=== PATIENT | male | born 2005 | race Caucasian/White ===

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

== ENCOUNTER 2023-04-18 23:16 | Emergency (ER) | payer OTHER ==
[~2023-04-18] VITALS: Ht 185.4 cm; Wt 70.5 kg
[2023-04-18 23:16] VITALS: TEMP 97.6
[~2023-04-18 23:16] MED LIST: IBUP-1022 PO
[2023-04-19] MEDS ORDERED: NS 1,000 ML IV ONE (01:15)
[2023-04-19 01:49] LABS: BASO # 0.1 10^3/uL (0.0-0.2); BASO % 0.7 % (0.0-1.0); EOS # 0.2 10^3/uL (0.0-0.5); EOS % 3.1 % (0.0-3.0); HEMATOCRIT 40.4 % (42.0-52.0); HEMOGLOBIN 13.6 g/dl (13.5-17.5); LYMPH # 2.6 10^3/uL (1.5-5.0); LYMPH % 38.1 % (24.0-44.0); MEAN CORPUSCULAR HEMOGLOBIN 29.8 pg (27.0-33.0); MEAN CORPUSCULAR HGB CONC 33.7 g/dl (32.0-36.5); MEAN CORPUSCULAR VOLUME 88.4 fl (80.0-96.0); MONO # 0.6 10^3/uL (0.0-0.8); NEUTROPHILS # 3.3 10^3/uL (1.5-8.5); NEUTROPHILS % 48.8 % (36.0-66.0); PLATELET COUNT, AUTOMATED 286 10^3/uL (150-450); RED BLOOD COUNT 4.57 10^6/uL (4.30-6.10); WHITE BLOOD COUNT 6.8 10^3/uL (4.0-10.0)
[2023-04-19 02:06] LABS: CK-MB VALUE MASS 1.1 NG/ML (<3.6); MAGNESIUM LEVEL 1.9 MG/DL (1.8-2.4)
[2023-04-19] MEDS ORDERED: ISOVUE-370 76% 100ML VIAL As Ordered ONE (02:26)
[2023-04-19 02:43] LABS: MB/CK RELATIVE INDEX 0.49 (< OR =4)
[2023-04-19 03:00] VITALS: BP 105/64
[2023-04-19 03:28] VITALS: O2SAT 99
== END 2023-04-19 03:58 | disposition home or self-care (01) ==
LOC: M ED 23:16
DX: R07.9 Chest pain, unspecified (principal); R00.1 Bradycardia, unspecified; Z79.1 Long term (current) use of non-steroidal anti-inflammatories (NSAID)
CPT/HCPCS: 71045; 71275; 80047; 82550; 82553; 83735; 84484; 85025; 93005; 96360; 99285; Q9967

== ENCOUNTER → 2024-02-16 | Outpatient (REF) | LOC: M PLAIMG 08:28 | PROVIDERS: ATTEND Internal Medicine | DX: R06.02 Shortness of breath (principal) ==